=== PATIENT | female | born 1960 | race Caucasian/White ===

== ENCOUNTER → 2017-04-18 | Outpatient (CLI) | payer BC ==
--- NOTE | 2017-04-18 17:38 | Diagnostic Imaging Report ---
Bilateral screening mammogram 2D views with tomosynthesis. The current study was also evaluated with a Computer Aided Detection (CAD) system. INDICATION: Screening. No current complaints stated on the questionnaire. COMPARISON: 07/08/2015. FINDINGS: The breasts are composed of scattered fibroglandular densities. Allowing for technique and positional differences, no suspicious change is seen. IMPRESSION: No significant change. ACR BI-RADS Category 2: Benign findings. Result letter will be mailed to the patient. Note: At least 10% of breast cancer is not imaged by mammography. Dictated by: Dictated on workstation # [id number]
== END ==
LOC: RAD 10:39
PROVIDERS: ATTEND Nurse Practitioner Family
DX: Z12.31 Encounter for screening mammogram for malignant neoplasm of breast (principal)
CPT/HCPCS: 77067

== ENCOUNTER → 2018-05-14 | Outpatient (CLI) | payer BC ==
--- NOTE | 2018-05-15 19:33 | Diagnostic Imaging Report ---
INDICATION: Routine screening. COMPARISON: Comparison is made with prior mammograms from 04/18/2017 and 07/08/2015. TECHNIQUE: 2D and 3D bilateral screening mammography was performed with computer-aided detection (CAD) system. FINDINGS: Scattered fibroglandular densities are identified bilaterally. The parenchymal pattern is stable. There is a benign-appearing nodular density in the lateral portion of the left breast mid depth, stable when compared with prior exam and most consistent with a benign etiology. There is a new nodule more medially located in the left breast at mid depth, seen on tomographic image 43 on the CC view. This is seen on tomographic image 45 on the MLO view in the upper portion. This is approximately 6 cm from the nipple. No other abnormalities are seen. No suspicious calcifications are identified. The axillae are unremarkable. IMPRESSION: Nodular density in the upper and slightly inner left breast, 6 cm from the nipple. Further evaluation with ultrasound is recommended. ACR BI-RADS Category 0: Incomplete. (Needs additional imaging evaluation). Result letter will be mailed to the patient. Note: At least 10% of breast cancer is not imaged by mammography. Dictated by: Dictated on workstation # [id number]
== END ==
LOC: RAD 14:36
PROVIDERS: ATTEND Nurse Practitioner Family
DX: Z12.31 Encounter for screening mammogram for malignant neoplasm of breast (principal); R92.8 Other abnormal and inconclusive findings on diagnostic imaging of breast
CPT/HCPCS: 77067

== ENCOUNTER → 2020-08-01 | Outpatient (CLI) | payer BC | LOC: RAD 08:30 | PROVIDERS: ATTEND Nurse Practitioner Family | DX: Z12.31 Encounter for screening mammogram for malignant neoplasm of breast (principal) | CPT/HCPCS: 77063; 77067 ==

== ENCOUNTER 2022-04-25 06:13 | Outpatient (CLI) | payer BC ==
[~2022-04-25] VITALS: Ht 152.4 cm; Wt 93.4 kg
[2022-04-25] MEDS ORDERED: CHOL10004 PO (11:52)
[2022-04-25] MEDS ORDERED: LISI1TAB46 PO (11:52)
[2022-04-25] MEDS ORDERED: LACT1CAP62 PO (11:52)
[2022-04-25] MEDS ORDERED: CETI10TA49 PO (11:52)
[2022-04-25] MEDS ORDERED: OMEP40CA6 PO (11:52)
== END 2022-04-25 11:55 | disposition home or self-care (01) ==
LOC: PREOP 06:13
PROVIDERS: ATTEND Surgery
DX: Z01.818 Encounter for other preprocedural examination (principal)

== ENCOUNTER 2022-05-02 09:51 | Day surgery (SDC) | payer BC ==
[~2022-05-02] VITALS: Ht 152 cm; Wt 93.4 kg
[~2022-05-02 09:51] MED LIST: CETI10TA49 PO; CHOL10004 PO; LACT1CAP62 PO; LISI1TAB46 PO; OMEP40CA6 PO
[2022-05-02] MEDS ORDERED: LACTATED RINGERS 1,000 ML IV STA (09:59)
[2022-05-02] MEDS ORDERED: HURRICAINE EXT TUBE (BENZOCAINE) XX PRN (10:00)
[2022-05-02] MEDS ORDERED: PROPOFOL INJECTION 50 ML IV ONE (10:08)
[2022-05-02] MEDS ORDERED: MIDAZOLAM 2 MG/2 ML (VERSED) VIAL ONE (10:08)
[2022-05-02 10:13] VITALS: BP 128/85
--- NOTE | 2022-05-02 10:31 | Progress Note-Pre Operative ---
Pre-Operative Progress Note Date of Available H&P: May 02, 2022 Date H&P Reviewed: May 02, 2022 Time H&P Reviewed: 10:00 History & Physical: No changes noted Pre-Operative Diagnosis: screening o VINNY MICHELE MD May 02, 2022 10:31
--- NOTE | 2022-05-02 10:32 | Discharge Inst-Surgical ---
D/C Lap Instructions-LENY Follow Up Activity as tolerated High Fiber Diet 25g or more per day Avoid Alcohol, Caffeine, Spicy [place] and Acid foods. Drink 64 fluid oz or more of fluids per day. Symptoms to Report: Fever over 101 degree F, Nausea/Vomiting If any problems/questions: Contact your physician or go to Emergency Room VINNY MICHELE MD May 02, 2022 10:32
[2022-05-02] MEDS ORDERED: ONDANSETRON 4 MG/2 ML (SDV) Z0FRAN IVP PRN (10:45)
[2022-05-02] MEDS ORDERED: ONDANSETRON 4 MG (ZOFRAN) ORAL DISSOLVE TAB PO PRN (10:45)
[2022-05-02] MEDS ORDERED: LIDOCAINE JELLY 2% 6 ML SYRINGE ONE (11:15)
[2022-05-02] MEDS ORDERED: LIDOCAINE JELLY 2% 6 ML SYRINGE TOP ONE (11:30)
[2022-05-02 11:35] VITALS: BP 128/72
[2022-05-02 11:40] VITALS: BP 123/73
--- NOTE | 2022-05-02 11:44 | Progress Note-Post Operative ---
Post-Operative Progess Note Surgeon (s)/Lead Systems Architect (s) Surgeon VINNY MICHELE MD Lead Systems Architect: none Pre-Operative Diagnosis screening colo Post-Operative Diagnosis mild chronic stage 2 ext and int hemorrhoids, mild sigmoid diverticulosis. Procedure & Operative Findings Date of Procedure 05/02/22 Procedure Performed/Findings colonoscopy Anesthesia Type mac Estimated Blood Loss Estimated blood loss (mL): minimal Specimens/Packing Specimens Removed none VINNY MICHELE MD May 02, 2022 11:44
[2022-05-02 12:10] VITALS: BP 122/73
[2022-05-02 12:23] VITALS: BP 122/73
--- NOTE | 2022-05-02 14:29 | Anesthesia-General Post-Op ---
MAC Patient Condition Mental Status/LOC: Same as Preop Cardiovascular: Satisfactory Nausea/Vomiting: Absent Respiratory: Satisfactory Pain: Controlled Complications: Absent Post Op Complications Complications None Follow Up Care/Instructions Patient Instructions None needed. Anesthesiology Discharge Order Discharge Order Patient is doing well, no complaints, stable vital signs, no apparent adverse anesthesia problems. No complications reported per nursing. ESTEBAN PLASCENCIA CRNA May 02, 2022 14:29
--- NOTE | 2022-05-02 20:18 | OPERATIVE REPORT ---
DATE OF SERVICE: 05/02/2022 ATTENDING PRIMARY CARE PHYSICIAN: Dr. Hailey Torres. PREOPERATIVE DIAGNOSIS: Screening colonoscopy. POSTOPERATIVE DIAGNOSES: Mild chronic stage II external and internal hemorrhoids, mild sigmoid diverticulosis. PROCEDURE: Colonoscopy. SURGEON: Vinny Michele MD. ANESTHESIA: Monitored anesthesia care. ESTIMATED BLOOD LOSS: Minimal. FINDINGS: Mild chronic stage II external and internal hemorrhoids, mild sigmoid diverticulosis. DISPOSITION: The patient tolerated the procedure well. INDICATIONS: The patient is a 61-year-old female in need of a screening colonoscopy. She also did have a Cologuard test recently, which was found to be positive. She does not report any red blood per rectum nor any dark tarry stools. She also does not report any upper gastrointestinal issues. She has a remote family history of colon cancer with a grandparent having the disease; however, no first-degree relatives. DESCRIPTION OF PROCEDURE: The patient was brought to the endoscopy suite, laid in the left lateral decubitus position. After adequate IV pain and sedative medications and monitored anesthesia care, a digital rectal examination was performed. Mild chronic stage II external and internal hemorrhoids were identified, which were not actively edematous nor inflamed and no bleeding. Normal sphincter tone was felt and there were no palpable masses. The endoscope was then intubated to the anus and rectum gently insufflated. The endoscope was then advanced to the valves of Hoffman of the rectum with no polyps or any neoplasms identified. We then proceeded through the sigmoid colon where a mild sigmoid diverticulosis identified, this was mild. The endoscope was then advanced to the remainder of the descending, transverse and ascending colon to the cecum, which were normal. There were no polyps or any neoplasms identified throughout the colon or rectum. Endoscope was then slowly withdrawn while taking a second look and suctioning of residual air with no additional findings. The patient tolerated the procedure well. We will recommend continued medical management with a high fiber diet with addition of a fiber supplement, which should equal or exceed 25 grams daily through a supplemental means to promote soft consistency stools on a daily basis. She does not have any first-degree family history of colon cancer and if she is asymptomatic, she does not need another colonoscopy for another 10 years. Job ID: [id number] DocumentID: [id number] Dictated Date: 05/02/2022 11:38:08 Nuclear Waste Process Operator Date: 05/02/2022 20:18:15 Dictated By: VINNY MICHELE MD MTDD
== END 2022-05-02 12:22 | disposition home or self-care (01) ==
LOC: ENDO 09:51
PROVIDERS: ATTEND Surgery
DX: K57.30 Diverticulosis of large intestine without perforation or abscess without bleeding (principal); K64.1 Second degree hemorrhoids; K64.4 Residual hemorrhoidal skin tags; Z80.0 Family history of malignant neoplasm of digestive organs; Z28.310 Unvaccinated for COVID-19